=== PATIENT | male | born 1960 | race Caucasian/White ===

== ENCOUNTER 2018-12-13 19:19 | Emergency (ER) | payer BC, OTHER ==
--- NOTE | 2018-12-13 19:35 | ED Physician Documentation ---
History of Present Illness - Stated complaint Stated Complaint: POSS A FIB - Chief complaint Chief Complaint: Cardiac - History obtained from History obtained from: Patient - History of Present Illness Timing: Prior to arrival - Additonal information Additional information: Is a 58-year-old man with a known history of atrial fibrillation. 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 [facility] approximately 3 hours prior to presentation. He called the Oncology Rep who recommended he take an additional dose of metoprolol 25 mg which he did slow his heart rate down so he Presents for evaluation. He says the last time this happened 7 weeks ago he went into [facility] and they took him immediately into the emergency department and cardioverted him. He would like that to be done today. He is experiencing some "burps" but he denies shortness of breath, chest pain dizziness. No pain radiating down the arms or legs. He is not on blood thinners. He denies nausea. He said no cough or sore throat. 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 Review of Systems Constitutional: denies: Fever Eyes: denies: Loss of vision Cardiac: reports: Palpitations. denies: Chest pain / pressure Respiratory: denies: Dyspnea, Cough GI: denies: Nausea, Vomiting : denies: Dysuria, Frequency Skin: denies: Rash Neurologic: denies: Generalized weakness, Focal weakness, Numbness, Syncope PD PAST MEDICAL HISTORY - Past Medical History Cardiovascular: Atrial flutter, Atrial fibrillation - Present Medications Home Medications: Ambulatory Orders Medication Instructions Recorded Confirmed Aspirin 81 mg PO DAILY 12/13/18 12/13/18 Metoprolol Succinate 25 mg PO DAILY 12/13/18 12/13/18 - Allergies Allergies/Adverse Reactions: Allergies Allergy/AdvReac Type Severity Reaction Status Date / Time adhesive Allergy Rash Verified 12/13/18 19:25 PD ED PE NORMAL - Vitals Vital signs reviewed: Yes - General General: Alert and oriented X 3, No acute distress, Well developed/nourished - HEENT HEENT: Atraumatic, Moist mucous membranes - Neck Neck: Supple, no meningeal sign, No adenopathy, No JVD - Cardiac Cardiac: No murmur, Other (Tachycardic) - Respiratory Respiratory: No respiratory distress, Clear bilaterally - Abdomen Abdomen: Normal bowel sounds, Soft, Non tender - Derm Derm: Normal color, Warm and dry, No rash - Extremities Extremities: Other (Trace calf edema bilaterally. There is well-healed scars across the anterior knees.) - Neuro Neuro: Alert and oriented X 3, No motor deficit, No sensory deficit, Normal speech - Psych Psych: Normal mood, Normal affect Results - Vitals Vitals: Vital Signs - 24 hr 12/13/18 12/13/18 12/13/18 19:22 19:44 19:58 Temperature 36.6 C Heart Rate 139 H 145 H 132 H Respiratory 21 14 Rate Blood Pressure 162/116 H 141/83 H 139/102 H O2 Saturation 98 98 12/13/18 12/13/18 12/13/18 20:03 20:08 20:13 Temperature Heart Rate 111 H 98 113 H Respiratory Rate Blood Pressure 131/66 H 132/91 H 144/73 H O2 Saturation 12/13/18 12/13/18 12/13/18 20:30 21:03 21:10 Temperature Heart Rate 120 H 120 H 89 Respiratory Rate Blood Pressure 135/81 H 144/88 H 125/75 O2 Saturation 98 96 12/13/18 12/13/18 12/13/18 21:16 21:22 21:28 Temperature Heart Rate 75 74 83 Respiratory 17 16 17 Rate Blood Pressure 128/78 120/77 126/71 O2 Saturation 96 97 97 12/13/18 21:45 Temperature Heart Rate 80 Respiratory Rate Blood Pressure 137/81 H O2 Saturation Oxygen O2 Source Room air - EKG (time done) 1920 Rate: Rate (enter#) Rhythm: Atrial flutter, Atrial fibrillation QRS: Normal Ischemia: Normal ST segments Compare to prior EKG: Old EKG unavailable 2329 Rate: Rate (enter#) Rhythm: Sinus bradycardia Intervals: Normal VA QRS: Poor R wave progression Other comments: Other comments (Q waves lead III and aVF, V1 through V3.) Compare to prior EKG: Changed from prior EKG (Most recent EKG here was A. fib with RVR) - Labs Labs: Laboratory Tests 12/13/18 12/13/18 12/13/18 19:35 19:35 19:35 WBC 7.5 RBC 4.60 L Hgb 13.4 L Hct 39.6 L MCV 86.1 MCH 29.1 MCHC 33.8 RDW 15.3 H Plt Count 169 MPV 8.4 Neut # (Auto) 5.0 Lymph # (Auto) 1.6 Clay # (Auto) 0.7 Eos # (Auto) 0.2 Baso # (Auto) 0.0 Absolute Nucleated RBC 0.00 Nucleated RBC % 0.0 Sodium 137 Potassium 3.8 Chloride 101 Carbon Dioxide 24 Anion Gap 12.0 BUN 27 H Creatinine 1.1 Estimated GFR (MDRD) 68 L Glucose 97 Calcium 9.2 Total Bilirubin 0.6 AST 19 ALT 18 Alkaline Phosphatase 79 Troponin I < 0.04 Total Protein 7.2 Albumin 4.0 Globulin 3.2 Albumin/Globulin Ratio 1.3 Lipase 35 TSH 12/13/18 19:35 WBC RBC Hgb Hct MCV MCH MCHC RDW Plt Count MPV Neut # (Auto) Lymph # (Auto) Clay # (Auto) Eos # (Auto) Baso # (Auto) Absolute Nucleated RBC Nucleated RBC % Sodium Potassium Chloride Carbon Dioxide Anion Gap BUN Creatinine Estimated GFR (MDRD) Glucose Calcium Total Bilirubin AST ALT Alkaline Phosphatase Troponin I Total Protein Albumin Globulin Albumin/Globulin Ratio Lipase TSH 2.37 - Rads (name of study) CXR Radiology: See rad report (Neg acute) Procedures - Procedural sedation Sedation prep: Informed consent Sedation medications: propofol Patient status during sedation: Drowsy, Responds to verbal Sedation recovery: Recovered uneventfully Time in sedation (Minutes): 7 (There was a second provider in the room to perform the sedation.) - Cardioversion Attempt 1 Time of attempt: 23:30 Indication: Tachyarrhythmia Risks, benefits, alternatives explained to: Pt Prep: IV, O2, library monitor, Pulse ox, Airway equip Meds: Propofol CS via: Pads, Anterolateral Sync: 50j, 100j, 200j Post cardioversion rhythm: NSR Performed by: ED MD PD MEDICAL DECISION MAKING - ED course Complexity details: re-evaluated patient, d/w patient, d/w family, d/w data security consultant ED course: Attempts at rate control were done with 10 mg of Cardizem initially IV. The rate came down to about 110s. Then given 20 mg of Cardizem and he was down in the 70s and 80s. He was still wishing to be cardioverted out of the A. fib so I spoke with Dr. 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 fib less than 48 hours. With the assistance of Dr. Villareal to help with conscious sedation patient was successfully cardioverted to sinus rhythm rate in the upper 50s. He was up and ambulated in the department without any difficulty and is discharged home. Departure - Departure Disposition: 01 Home, Self Care Clinical Impression: A-fib Qualifiers: Atrial fibrillation type: paroxysmal Qualified Code(s): I48.0 - Paroxysmal atrial fibrillation Condition: Good Instructions: ED Afib Follow-Up: Dougie Vallejo MD [Primary Care Provider] - doctor, your [Other] (Call on Saturday to make an appointment with Dr. Valente for follow-up of the A. fib.) Comments: Contact your sausage smoker office on Saturday for follow-up. Do not take any further blood pressure medications or Metoprolol tonight. Return if any problems arise.
[2018-12-13] MEDS ORDERED: diltiaZEM INJ 5 MG/ML VIAL IVP STA ×3 (19:49→20:55)
[2018-12-13 20:04] LABS: BASOPHILS % (AUTO) 0.4 %; EOSINOPHILS # (AUTO) 0.2 10^3/uL (0.0-0.7); EOSINOPHILS % (AUTO) 2.2 %; HGB - HEMOGLOBIN 13.4 g/dL (14.0-18.0); LYMPHOCYTES # (AUTO) 1.6 10^3/uL (1.5-3.5); LYMPHOCYTES % (AUTO) 20.9 %; MEAN CORPUSCULAR HEMOGLOBIN 29.1 pg (27.0-31.0); MEAN CORPUSCULAR HGB CONC 33.8 g/dL (32.0-36.0); MEAN CORPUSCULAR VOLUME 86.1 fL (80.0-94.0); MEAN PLATELET VOLUME 8.4 fL (7.4-11.4); MONOCYTES # (AUTO) 0.7 10^3/uL (0.0-1.0); MONOCYTES % (AUTO) 9.6 %; NEUTROPHILS % (AUTO) 66.9 %; PLT - PLATELET COUNT 169 10^3/uL (130-450); RED CELL DISTRIBUTION WIDTH 15.3 % (12.0-15.0); WHITE BLOOD COUNT 7.5 x10^3/uL (4.8-10.8)
--- NOTE | 2018-12-13 20:07 | XRAY Report ---
Reason: chest pain Procedure Date: 12/13/2018 Accession Number: [id number] / [id number] Procedure: XR - Chest 1 View X-Ray CPT Code: 62007 FULL RESULT: EXAM: CHEST RADIOGRAPHY EXAM DATE: 12/13/2018 07:58 PM. CLINICAL HISTORY: Chest pain. COMPARISON: None. TECHNIQUE: 1 view. FINDINGS: Lungs/Pleura: No focal opacities evident. No pleural effusion. No pneumothorax. Mediastinum: Heart is enlarged. Aorta is mildly tortuous. Other: None. IMPRESSION: 1. No acute disease in the chest. RADIA
[2018-12-13 20:11] LABS: ALBUMIN/GLOBULIN RATIO 1.3 (1.0-2.2); BILIRUBIN,TOTAL 0.6 mg/dL (0.2-1.0); CALCIUM 9.2 mg/dL (8.5-10.3); CREATININE 1.1 mg/dL (0.6-1.2); TOTAL PROTEIN 7.2 g/dL (6.7-8.2)
[2018-12-13] MEDS ORDERED: PROPOFOL 200 MG/20 ML VIAL IVP STA (23:18)
[2018-12-13] MEDS ORDERED: SODIUM CHLORIDE 0.9% 1,000 ML IV ONE (23:22)
[2018-12-14 00:25] VITALS: BP 128/60
== END 2018-12-14 00:25 | disposition home or self-care (01) ==
LOC: ED 19:19
DX: I48.0 Paroxysmal atrial fibrillation (principal); I48.92 Unspecified atrial flutter; Z79.82 Long term (current) use of aspirin; Z79.899 Other long term (current) drug therapy
CPT/HCPCS: 36415; 71045; 80053; 83690; 84443; 84484; 85025; 92960; 93005; 94770; 96374; 96376; 99284; 99285